=== PATIENT | female | born 1950 | race Caucasian/White ===

== ENCOUNTER 2017-10-21 10:58 | Emergency (ER) | payer MEDICARE, MEDICAID ==
[~2017-10-21] VITALS: Ht 170.2 cm; Wt 64.5 kg
[~2017-10-21 10:58] MED LIST: ESCI5TAB PO; HYDR-569 PO; METF500T PO; PHEN-873 PO; ROSU5TAB4 PO; TOP100T PO; WEL75T PO
[2017-10-21] MEDS ORDERED: LIDOcaine 1.5% w/epinephrine 1:200,000 5ml ampul IJ ONE (11:50)
[2017-10-21 12:19] VITALS: BP 131/74
== END 2017-10-21 13:02 | disposition home or self-care (01) ==
LOC: ER 10:59
DX: S09.90XA Unspecified injury of head, initial encounter (principal); S01.512A Laceration without foreign body of oral cavity, initial encounter; S60.512A Abrasion of left hand, initial encounter; E11.9 Type 2 diabetes mellitus without complications; G43.909 Migraine, unspecified, not intractable, without status migrainosus; Z88.2 Allergy status to sulfonamides; Z79.899 Other long term (current) drug therapy; Z60.2 Problems related to living alone; W18.39XA Other fall on same level, initial encounter; Y93.89 Activity, other specified; Y92.89 Other specified places as the place of occurrence of the external cause; Y99.8 Other external cause status
CPT/HCPCS: 12011; 70450; 70486; 99284; A6449; J3490